=== PATIENT | female | born 1935 | race Caucasian/White ===

== ENCOUNTER → 2016-10-11 | Outpatient (CLI) | payer MEDICARE, OTHER ==
[~2016-10-11] MED LIST: ASP81TEC PO; CALC1TAB97 PO; FLAX100031 PO; GLUC500C2 PO; LSNP10T PO; NABU750T PO; OMG1KC PO; POTA10TA PO; [UNRECOGNIZED DRUG - CODE] PO
--- OUTSIDE RECORDS SUMMARY | 2016-10-11 16:05 | XMS REPORT | Continuity of Care Document ---
Author Author [facility] Organization [facility] Address Unknown Phone Unavailable Allergies Active Description Code Type Severity Reaction Onset Reported/Identified Relationship to Patient Clinical Status Yes PENICILLIN PENICILLIN Mild RASH 07/22/2011 Yes iodine [id number] Drug Allergy Unknown N/A 07/22/2011 Yes SULFA SULFA Unknown N/A 07/22/2011 Medications Problems Date Dx Coded Attending Type Code Diagnosis Diagnosed By 05/07/2010 Ot 401.9 05/07/2010 Ot 714.0 05/07/2010 Ot 722.52 05/07/2010 Ot 733.90 05/07/2010 Ot V43.65 05/07/2010 Ot V45.4 05/07/2010 Ot V57.1 07/22/2011 Ot V12.72 07/22/2011 Ot V76.51 09/24/2012 Ot 715.35 09/24/2012 Ot 724.02 09/24/2012 Ot E000.8 09/24/2012 Ot E849.0 09/24/2012 Ot E888.9 09/24/2012 Ot V57.1 11/20/2012 Ot 733.00 07/29/2014 BK SEXTON DO Ot 793.80 07/29/2014 BK SEXTON DO Ot V67.9 09/05/2014 Ot 722.52 09/05/2014 Ot 733.90 09/05/2014 Ot 611.72 09/05/2014 Ot V76.12 09/05/2014 Ot V76.12 09/05/2014 Ot 724.02 09/05/2014 Ot 738.4 09/05/2014 Ot V72.83 09/05/2014 Ot 724.00 09/05/2014 Ot V72.63 09/05/2014 Ot V74.8 09/05/2014 Ot 721.3 09/05/2014 Ot V45.4 09/05/2014 Ot V67.09 09/05/2014 Ot V76.12 09/05/2014 Ot 724.4 09/05/2014 Ot V45.4 09/05/2014 Ot V67.09 09/05/2014 Ot 715.90 09/05/2014 Ot V43.65 09/05/2014 Ot V76.12 09/05/2014 Ot 272.4 09/05/2014 Ot 401.9 09/05/2014 Ot 729.5 09/05/2014 Ot 733.00 09/05/2014 Ot 793.82 09/05/2014 Ot V76.12 09/05/2014 Ot 715.35 09/05/2014 Ot 724.02 09/05/2014 Ot 959.6 09/05/2014 Ot E000.8 09/05/2014 Ot E849.0 09/05/2014 Ot E888.9 09/05/2014 Ot 625.9 09/05/2014 Ot 610.0 09/05/2014 Ot 611.72 09/05/2014 Ot 733.00 09/05/2014 BK SEXTON DO Ot V67.9 09/05/2014 BK SEXTON DO Ot 793.80 09/05/2014 BK SEXTON DO Ot V67.9 09/05/2014 NAREN CHADWICK, MARYSOL Rain Ot V58.61 09/05/2014 NAREN CHADWICK, MARYSOL Rain Ot V58.83 09/05/2014 MARYSOL SNEED MD Ot V58.61 09/05/2014 NAREN CHADWICK, MARYSOL Rain Ot V58.83 09/05/2014 MARYSOL SNEED MD Ot V58.61 09/05/2014 MARYSOL SNEED MD Ot V58.83 09/08/2014 BK SEXTON DO Ot V76.12 09/26/2014 BK SEXTON DO Ot V76.12 10/08/2015 Ot V76.12 10/08/2015 Ot 724.4 10/08/2015 Ot V45.4 10/08/2015 Ot V67.09 10/08/2015 Ot 715.90 10/08/2015 Ot V43.65 10/08/2015 Ot V76.12 10/08/2015 Ot 272.4 10/08/2015 Ot 401.9 10/08/2015 Ot 729.5 10/08/2015 Ot 733.00 10/08/2015 Ot 793.82 10/08/2015 Ot V76.12 10/08/2015 Ot 715.35 10/08/2015 Ot 724.02 10/08/2015 Ot 959.6 10/08/2015 Ot E000.8 10/08/2015 Ot E849.0 10/08/2015 Ot E888.9 10/08/2015 Ot 625.9 10/08/2015 Ot 610.0 10/08/2015 Ot 611.72 10/08/2015 Ot 733.00 10/08/2015 BK SEXTON DO Ot V67.9 10/08/2015 BK SEXTON DO Ot 793.80 10/08/2015 BK SEXTON DO Ot V67.9 10/08/2015 NAREN CHADWICK, MARYSOL Rain Ot V58.61 10/08/2015 NAREN CHADWICK, MARYSOL Rain Ot V58.83 10/08/2015 NAREN CHADWICK, MARYSOL Rain Ot V58.61 10/08/2015 NAREN CHADWICK, MARYSOL Rain Ot V58.83 10/08/2015 NAREN CHADWICK, MARYSOL Rain Ot V58.61 10/08/2015 NAREN CHADWICK, MARYSOL Rain Ot V58.83 10/08/2015 BK SEXTON DO Ot V76.12 10/28/2015 BK SEXTON DO Ot Z12.31 11/17/2015 BK SEXTON DO Ot M85.88 11/17/2015 BK SEXTON DO Ot Z13.820 Procedures Results Encounters ACCT No. Visit Date/Time Discharge Status Pt. Type Provider Facility Loc./Unit Complaint [id number] 09/05/2014 13:10:00 2014 23:59:59 CLS Outpatient BK SEXOTN DO [facility] RAD [id number] 09/04/2013 13:53:00 2013 23:59:59 CLS Outpatient BK SEXTON DO [facility] RAD [id number] 08/26/2013 12:00:00 2013 23:59:59 CLS Outpatient MARYSOL SNEED MD [facility] [id number] 08/22/2013 12:29:00 2013 23:59:59 CLS Outpatient MARYSOL SNEED MD [facility] [id number] 08/19/2013 08:19:00 2013 23:59:59 CLS Outpatient MARYSOL SNEED MD [facility] [id number] 03/04/2013 12:46:00 2012 23:59:59 CLS Outpatient CARLIE MARTÍNEZ BK Isma [facility] [id number] 10/22/2015 08:31:00 ACT Outpatient CARLIE MARTÍNEZ BK Isma [facility] [id number] 10/08/2015 14:30:00 ACT Outpatient CARLIE MARTÍNEZ BK Isma [facility] [id number] 09/05/2014 13:14:00 Document Registration [id number] 11/21/2012 00:00:00 Document Registration [id number] 09/14/2012 11:21:00 Document Registration [id number] 09/03/2012 12:51:00 Document Registration [id number] 08/24/2012 09:55:00 Document Registration [id number] 08/15/2012 12:03:00 Document Registration [id number] 08/09/2012 15:12:00 Document Registration [id number] 07/20/2012 10:30:00 Document Registration [id number] 02/20/2012 11:30:00 Document Registration [id number] 07/22/2011 08:10:00 Document Registration [id number] 07/13/2011 13:18:00 Document Registration [id number] 02/24/2011 13:24:00 Document Registration [id number] 07/07/2010 12:30:00 Document Registration [id number] 06/08/2010 13:56:00 Document Registration [id number] 05/07/2010 09:46:00 Document Registration [id number] 03/16/2010 11:51:00 Document Registration [id number] 02/17/2010 11:54:00 Document Registration [id number] 02/08/2010 08:25:00 Document Registration [id number] 07/01/2009 10:41:00 Document Registration [id number] 06/19/2009 12:29:00 Document Registration [id number] 03/27/2009 12:55:00 Document Registration [id number] 03/24/2009 12:12:00 Document Registration
--- NOTE | 2016-10-12 20:18 | Diagnostic Imaging Report ---
Bilateral screening mammogram. The current study was also evaluated with a Computer Aided Detection (CAD) system. INDICATION: Screening. No current complaints stated on the questionnaire. COMPARISON: 10/08/2015. FINDINGS: The breasts are composed of scattered fibroglandular densities. There are scattered benign-appearing calcifications. Stable benign-appearing subcentimeter nodules in the left breast are again noted, probably related to cysts. There is suggestion of an intramammary lymph node in the central aspect of the right breast as well with no definite change. Allowing for technique and positional differences, no suspicious change is seen. IMPRESSION: No significant change. ACR BI-RADS Category 2: Benign findings. Result letter will be mailed to the patient. Note: At least 10% of breast cancer is not imaged by mammography. Dictated by: Dictated on workstation # [id number]
== END ==
LOC: RAD 12:53
PROVIDERS: ATTEND Internal Medicine
DX: Z12.31 Encounter for screening mammogram for malignant neoplasm of breast (principal)
CPT/HCPCS: 77067

== ENCOUNTER 2017-11-01 15:23 | Outpatient (RCR) | payer MEDICARE, OTHER | END 2017-11-02 16:11 | disposition home or self-care (01) | PROVIDERS: ATTEND Physician Assistant | DX: M48.061 Spinal stenosis, lumbar region without neurogenic claudication (principal); M54.16 Radiculopathy, lumbar region; M25.511 Pain in right shoulder; M25.512 Pain in left shoulder ==

== ENCOUNTER → 2017-11-01 | Outpatient (CLI) | payer MEDICARE, OTHER ==
--- NOTE | 2017-11-01 16:55 | Diagnostic Imaging Report ---
INDICATION: Chronic left knee pain. TIME OF EXAM: 02:34 p.m. FINDINGS: Multiple views of the left knee including a standing AP view of the right knee were obtained. 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 The prosthetic elements appear to be in good position. The left knee demonstrates severe tricompartmental degenerative change. There is joint space narrowing present. Marginal osteophyte formation is present. No fracture is seen. There is very slight lateral subluxation of the tibia in relation to the distal femur. No joint effusion is identified. There are several ossific bodies noted posteriorly on the lateral view which may represent loose bodies. IMPRESSION: Severe tricompartmental degenerative change, as described. There are probable loose bodies posteriorly. No acute fracture or joint effusion is detected. Dictated by: Dictated on workstation # [id number]
== END ==
LOC: RAD 13:57
PROVIDERS: ATTEND Specialist
DX: M17.12 Unilateral primary osteoarthritis, left knee (principal); Z96.652 Presence of left artificial knee joint; Z98.890 Other specified postprocedural states
CPT/HCPCS: 73564

== ENCOUNTER → 2017-11-08 | Outpatient (CLI) | payer MEDICARE, OTHER ==
--- NOTE | 2017-11-08 19:21 | Diagnostic Imaging Report ---
INDICATION: Routine screening. Comparison is made with prior studies from 10/11/2016 and 10/08/2015. The current study was also evaluated with a Computer Aided Detection (CAD) system. FINDINGS: Scattered fibroglandular densities are identified bilaterally. Circumscribed densities are identified bilaterally, greatest on the right which appear benign and appear stable. No spiculated mass or malignant-appearing microcalcifications are seen. The axillae are unremarkable. IMPRESSION: No mammographic features suspicious for malignancy are identified. ACR BI-RADS Category 2: Benign findings. Result letter will be mailed to the patient. Note: At least 10% of breast cancer is not imaged by mammography. Dictated by: Dictated on workstation # [id number]
== END ==
LOC: RAD 14:25
PROVIDERS: ATTEND Internal Medicine
DX: Z12.31 Encounter for screening mammogram for malignant neoplasm of breast (principal)
CPT/HCPCS: 77067

== ENCOUNTER 2017-12-15 16:18 | Outpatient (RCR) | payer MEDICARE, OTHER | END 2017-12-17 | disposition home or self-care (01) | LOC: CR3 16:18 | PROVIDERS: ATTEND Internal Medicine | DX: Z29.8 Encounter for other specified prophylactic measures (principal) ==

== ENCOUNTER → 2018-01-17 | Outpatient (RCR) | payer MEDICARE, OTHER | END | disposition home or self-care (01) | LOC: CR3 12-18 16:00 | PROVIDERS: ATTEND Internal Medicine | DX: Z29.8 Encounter for other specified prophylactic measures (principal) ==

== ENCOUNTER 2018-02-12 16:37 | Outpatient (RCR) | payer MEDICARE, OTHER | END 2018-02-18 | disposition home or self-care (01) | LOC: CR3 16:37 | PROVIDERS: ATTEND Internal Medicine | DX: Z29.8 Encounter for other specified prophylactic measures (principal) ==

== ENCOUNTER → 2018-03-21 | Outpatient (RCR) | payer MEDICARE, OTHER | END | disposition home or self-care (01) | LOC: CR3 02-19 14:52 | PROVIDERS: ATTEND Internal Medicine | DX: Z29.8 Encounter for other specified prophylactic measures (principal) ==

== ENCOUNTER 2018-04-20 16:12 | Outpatient (RCR) | payer MEDICARE, OTHER | END 2018-04-22 | disposition home or self-care (01) | LOC: CR3 16:12 | PROVIDERS: ATTEND Internal Medicine | DX: Z29.8 Encounter for other specified prophylactic measures (principal) ==

== ENCOUNTER → 2018-05-23 | Outpatient (RCR) | payer MEDICARE, OTHER | END | disposition home or self-care (01) | LOC: CR3 04-23 16:00 | PROVIDERS: ATTEND Internal Medicine | DX: Z29.8 Encounter for other specified prophylactic measures (principal) ==

== ENCOUNTER 2018-06-20 15:44 | Outpatient (RCR) | payer MEDICARE, OTHER | END 2018-06-24 | disposition home or self-care (01) | LOC: CR3 15:44 | PROVIDERS: ATTEND Internal Medicine | DX: Z29.8 Encounter for other specified prophylactic measures (principal) ==

== ENCOUNTER → 2018-07-27 | Outpatient (RCR) | payer MEDICARE, OTHER | END | disposition home or self-care (01) | LOC: CR3 06-27 14:00 | PROVIDERS: ATTEND Internal Medicine | DX: Z29.8 Encounter for other specified prophylactic measures (principal) ==

== ENCOUNTER → 2018-08-29 | Outpatient (RCR) | payer MEDICARE, OTHER | END | disposition home or self-care (01) | LOC: CR3 07-30 16:00 | PROVIDERS: ATTEND Internal Medicine | DX: Z29.8 Encounter for other specified prophylactic measures (principal) ==

== ENCOUNTER 2018-10-01 15:42 | Outpatient (RCR) | payer MEDICARE, OTHER | END 2018-10-05 | disposition home or self-care (01) | LOC: CR3 15:42 | PROVIDERS: ATTEND Internal Medicine | DX: Z29.8 Encounter for other specified prophylactic measures (principal) ==

== ENCOUNTER → 2018-10-19 | Outpatient (CLI) | payer MEDICARE, OTHER ==
--- NOTE | 2018-10-19 13:06 | Diagnostic Imaging Report ---
INDICATION: Routine screening. COMPARISON: 11/08/2017 and 10/11/2016. TECHNIQUE: 2D and 3D bilateral screening mammography was performed with CAD. FINDINGS: Scattered fibroglandular densities are identified bilaterally. Benign-appearing nodular densities in the right breast appear stable. The left breast is unremarkable. No spiculated mass or malignant-appearing microcalcifications are seen. The axillae are unremarkable. IMPRESSION: No mammographic features suspicious for malignancy are identified. ACR BI-RADS Category 2: Benign findings. Result letter will be mailed to the patient. Note: At least 10% of breast cancer is not imaged by mammography. Dictated by: Dictated on workstation # [id number]
== END ==
LOC: RAD 10:52
PROVIDERS: ATTEND Internal Medicine
DX: Z12.31 Encounter for screening mammogram for malignant neoplasm of breast (principal)
CPT/HCPCS: 77067

== ENCOUNTER → 2018-11-07 | Outpatient (RCR) | payer MEDICARE, OTHER | END | disposition home or self-care (01) | LOC: CR3 10-08 16:51 | PROVIDERS: ATTEND Internal Medicine | DX: Z29.8 Encounter for other specified prophylactic measures (principal) ==

== ENCOUNTER → 2018-12-12 | Outpatient (RCR) | payer MEDICARE, OTHER | END | disposition home or self-care (01) | LOC: CR3 11-12 15:00 | PROVIDERS: ATTEND Internal Medicine | DX: Z29.8 Encounter for other specified prophylactic measures (principal) ==

== ENCOUNTER 2019-01-16 16:20 | Outpatient (RCR) | payer MEDICARE, OTHER | END 2019-01-18 | disposition home or self-care (01) | LOC: CR3 16:20 | PROVIDERS: ATTEND Internal Medicine | DX: Z29.8 Encounter for other specified prophylactic measures (principal) ==

== ENCOUNTER → 2019-02-22 | Outpatient (RCR) | payer MEDICARE, OTHER | END | disposition home or self-care (01) | LOC: CR3 01-23 15:40 | PROVIDERS: ATTEND Internal Medicine | DX: Z29.8 Encounter for other specified prophylactic measures (principal) ==

== ENCOUNTER → 2019-03-27 | Outpatient (RCR) | payer MEDICARE, OTHER | END | disposition home or self-care (01) | LOC: CR3 02-25 16:30 | PROVIDERS: ATTEND Internal Medicine | DX: Z29.8 Encounter for other specified prophylactic measures (principal) ==

== ENCOUNTER 2019-04-24 15:12 | Outpatient (RCR) | payer MEDICARE, OTHER | END 2019-04-28 | disposition home or self-care (01) | LOC: CR3 15:12 | PROVIDERS: ATTEND Internal Medicine | DX: Z29.8 Encounter for other specified prophylactic measures (principal) ==

== ENCOUNTER 2019-05-27 16:30 | Outpatient (RCR) | payer MEDICARE, OTHER | END 2019-05-29 | disposition home or self-care (01) | LOC: CR3 16:30 | PROVIDERS: ATTEND Internal Medicine | DX: Z29.8 Encounter for other specified prophylactic measures (principal) ==

== ENCOUNTER 2019-06-28 17:09 | Outpatient (RCR) | payer MEDICARE, OTHER | END 2019-06-30 | disposition home or self-care (01) | LOC: CR3 17:09 | PROVIDERS: ATTEND Internal Medicine | DX: Z29.8 Encounter for other specified prophylactic measures (principal) ==

== ENCOUNTER → 2019-07-31 | Outpatient (RCR) | payer MEDICARE, OTHER | END | disposition home or self-care (01) | LOC: CR3 07-01 16:00 | PROVIDERS: ATTEND Internal Medicine | DX: Z29.8 Encounter for other specified prophylactic measures (principal) ==

== ENCOUNTER 2019-08-28 15:46 | Outpatient (RCR) | payer MEDICARE, OTHER | END 2019-09-01 | disposition home or self-care (01) | LOC: CR3 15:46 | PROVIDERS: ATTEND Internal Medicine | DX: Z29.8 Encounter for other specified prophylactic measures (principal) ==

== ENCOUNTER 2019-10-07 15:51 | Outpatient (RCR) | payer MEDICARE, OTHER | END 2019-10-09 | disposition home or self-care (01) | LOC: CR3 15:51 | PROVIDERS: ATTEND Internal Medicine | DX: Z29.8 Encounter for other specified prophylactic measures (principal) ==

== ENCOUNTER 2019-10-21 16:14 | Outpatient (RCR) | payer MEDICARE, OTHER | END 2019-11-10 | disposition home or self-care (01) | LOC: CR3 16:14 | PROVIDERS: ATTEND Internal Medicine | DX: Z29.8 Encounter for other specified prophylactic measures (principal) ==

== ENCOUNTER → 2020-10-29 | Outpatient (CLI) | payer MEDICARE, OTHER ==
--- NOTE | 2020-10-30 11:36 | Diagnostic Imaging Report ---
Indication: Routine screening. Comparison is made with prior mammogram 10/19/2018 and 11/08/2017. 2-D and 3-D bilateral screening mammography was performed with CAD. Both breasts are heterogeneously dense, limiting the sensitivity of mammography. The benign nodules on the right remain stable and consistent with benign etiology. There are benign calcifications noted. No spiculated mass or malignant appearing microcalcifications are seen. Axillae are unremarkable. IMPRESSION: BI-RADS Category 2 No mammographic features suspicious for malignancy are identified. Dictated by: Dictated on workstation # [id number]
== END ==
LOC: RAD 14:57
PROVIDERS: ATTEND Internal Medicine
DX: Z12.31 Encounter for screening mammogram for malignant neoplasm of breast (principal)
CPT/HCPCS: 77063; 77067

== ENCOUNTER → 2021-12-14 | Outpatient (CLI) | payer MEDICARE, OTHER ==
--- NOTE | 2021-12-14 18:27 | Diagnostic Imaging Report ---
Indication: Routine screening. Comparison is made with prior mammogram 10/29/2020 10/19/2018. 2-D and 3-D bilateral screening mammography was performed CAD. Scattered fibroglandular densities are identified bilaterally. A waxing and waning of the benign-appearing nodules the right breast are noted suggestive of cysts. There are benign calcifications within both breasts. No spiculated mass or malignant-appearing microcalcifications are seen. Axillae are unremarkable. IMPRESSION: BI-RADS Category 2 No mammographic features suspicious for malignancy are identified. Dictated by: Dictated on workstation # [id number]
== END ==
LOC: RAD 14:00
PROVIDERS: ATTEND Internal Medicine
DX: Z12.31 Encounter for screening mammogram for malignant neoplasm of breast (principal)
CPT/HCPCS: 77063; 77067

== ENCOUNTER → 2022-09-22 | Outpatient (CLI) | payer MEDICARE, OTHER ==
--- NOTE | 2022-09-22 14:08 | Diagnostic Imaging Report ---
PROCEDURE: US Renal Bilateral. TECHNIQUE: Multiple real-time grayscale images were obtained over the kidneys in various projections bilaterally. INDICATION: Chronic kidney disease. Right kidney measures 8.0 x 4.0 x 4.2 cm and the left kidney measures 7.9 x 4.9 x 4.7 cm. The cortical thickness and echogenicity appears normal. There is a somewhat rounded area of hypoechogenicity in the right kidney measuring 3.2 x 2.4 x 2.2 cm. This shows some vascularity. It is uncertain if this represents focal cortical thickening versus a mass. No calculi or hydronephrosis is seen. The left kidney does contain echogenic focus measuring 4 mm x 7 mm. This may represent a nonobstructing calculus. No hydronephrosis is seen. Bladder volume is 160 mL. Postvoid volume is 145 mL. Bilateral ureteral jets were visualized. IMPRESSION: 1. Focal cortical thickening versus mass right kidney. CT or MRI would be useful for further evaluation. 2. Probable nonobstructing left renal calculus. No hydronephrosis is seen. 3. Post void residual bladder volume. Dictated by: Dictated on workstation # [id number]
== END ==
LOC: RAD 12:27
PROVIDERS: ATTEND Internal Medicine Nephrology
DX: Z98.890 Other specified postprocedural states (principal); I12.9 Hypertensive chronic kidney disease with stage 1 through stage 4 chronic kidney disease, or unspecified chronic kidney disease; N18.31 Chronic kidney disease, stage 3a; E21.1 Secondary hyperparathyroidism, not elsewhere classified; D63.1 Anemia in chronic kidney disease
CPT/HCPCS: 76770

== ENCOUNTER → 2022-10-28 | Outpatient (CLI) | payer MEDICARE, OTHER ==
--- NOTE | 2022-10-28 16:59 | Diagnostic Imaging Report ---
Procedure: MR imaging abdomen without contrast. Technique: Multiplanar, multisequence MR imaging of the abdomen was performed without contrast. Date: October 28, 2022. Indication: 86-year-old female, evaluation of right renal mass. Comparison: Renal ultrasound September 22, 2022. Findings: There are limitations for evaluation of the abdominal parenchymal organs, evaluation of malignancy, and evaluation of the vasculature given lack of intravenous contrast. The liver is not grossly nodular in outer contour. There is no evidence of diffuse fatty infiltration of the liver. The partially imaged portions of the liver without identified focal liver lesion on noncontrast assessment. There is no identified intrahepatic bile duct dilation. The common bile duct measures 10 mm in diameter. The main pancreatic duct is noted abnormally dilated. Noncontrast evaluation of the pancreatic parenchyma is unremarkable. The spleen is not grossly enlarged. The adrenal glands are unremarkable. There is a 5 mm T2 hyperintense lesion in the right kidney on axial T2 sequence image 10 too small to characterize. There is no otherwise visible renal lesion on noncontrast assessment. The urinary collecting systems are not distended. There is scoliosis and degenerative changes of the spine. The imaged portions of the intestinal tract are not distended. Impression: 1. 5 mm T2 hyperintense right renal lesion too small to characterize. 2. No additional visible renal mass on noncontrast assessment. 3. Dilation of the common bile duct up to 10 mm diameter which is very near upper limits of diameter for patient age. No intrahepatic bile duct dilation. Correlation with laboratory values may be of benefit. 4. Normal caliber main pancreatic duct and unremarkable parenchymal assessment of the pancreas on noncontrast assessment. Dictated by: Dictated on workstation # [id number]
== END ==
LOC: RAD 13:34
PROVIDERS: ATTEND Internal Medicine Nephrology
DX: N28.89 Other specified disorders of kidney and ureter (principal); K83.9 Disease of biliary tract, unspecified
CPT/HCPCS: 74181

== ENCOUNTER → 2023-06-13 | Outpatient (CLI) | payer MEDICARE, OTHER ==
--- NOTE | 2023-06-13 15:58 | Diagnostic Imaging Report ---
INDICATION: Routine screening. Comparison is made with prior mammograms from 12/14/2021 and 10/29/2020. 2-D and 3-D bilateral screening mammography was performed with CAD. Both breasts are heterogeneously dense, limiting the sensitivity of mammography. Benign-appearing right breast nodules appears stable. Scattered benign-appearing calcifications are noted bilaterally. No dominant mass or malignant-appearing microcalcifications are identified. Axillae are unremarkable. IMPRESSION: BI-RADS Category 2 No mammographic features suspicious for malignancy are identified. ACR BI-RADS Category 2: Benign findings. Result letter will be mailed to the patient. Note: At least 10% of breast cancer is not imaged by mammography. Dictated by: Dictated on workstation # [id number]
== END ==
LOC: RAD 13:57
PROVIDERS: ATTEND Internal Medicine
DX: Z12.31 Encounter for screening mammogram for malignant neoplasm of breast (principal)
CPT/HCPCS: 77063; 77067